=== PATIENT | male | born 1985 | race Caucasian/White ===

== ENCOUNTER 2023-03-09 00:34 | Emergency (ER) | payer OTHER, SELFPAY ==
--- NOTE | 2023-03-09 | ECG_ITS ---
Test Reason : TASED Blood Pressure : / mmHG Vent. Rate : 118 BPM Atrial Rate : 118 BPM P-R Int : 130 ms QRS Dur : 088 ms QT Int : 358 ms P-R-T Axes : 045 -14 055 degrees QTc Int : 501 ms Sinus tachycardia Nonspecific ST abnormality Abnormal ECG When compared with ECG of 25-DEC-2017 21:55, Heart rate has decreased Referred By: Amparo Garcia Electronically Signed By:MICHELA COATES
[2023-03-09 00:39] VITALS: BP 142/82; PULSE 134; RESP 22; TEMP 36.5; O2SAT 94; BMI 30.4
--- NOTE | 2023-03-09 00:52 | ED.GENADULT ---
HPI - General Adult General Chief complaint: General Medical Stated complaint: behavioral Time Seen by Provider: 03/09/23 00:39 Source: patient, RN notes reviewed and police Mode of arrival: EMS Limitations: no limitations History of Present Illness HPI narrative: Patient comes to the emergency room by EMS and with police. Patient states that he does not remember exactly what happened, states that he does remember he was running away from police, the taste, admits to using cocaine. According to the patient's nurse to talk report, the patient was combative, was physically restrain. At this time, patient has no complaints. Patient calm and cooperative. Related Data Allergies Allergy/AdvReac Type Severity Reaction Status Date / Time No Known Allergies Allergy Unverified 03/29/20 15:40 Review of Systems Review of Systems: Constitutional : No Weight loss, No Fever, No Chills, No Night Sweats, No Fatigue, No Malaise ENT/Mouth : No Hearing loss, No Ear Pain, No Nasal Congestion, No Sinus Pain, No Hoarseness, No sore throat, No Rhinorrhea, No Swallowing Difficulty Eyes: No Eye Pain, No Swelling, No Redness, No Foreign Body, No Discharge, No Vision Changes Cardiovascular : No Chest Pain, No SOB, No Dyspnea on Exertion, No Orthopnea, No Edema, No Palpitations Respiratory : No Cough, No Sputum, No Wheezing, No Smoke Exposure, No Dyspnea Gastrointestinal : No Nausea, No Vomiting, No Diarrhea, No Constipation, No abdominal Pain, No Hematochezia, No Melena Genitourinary : no irregular bleeding, No Dysuria, No Urinary Frequency, No Hematuria, No Urinary Incontinence, No Urgency, No Flank Pain, No Urinary Flow Changes, No Hesitancy Musculoskeletal : No joint pain, No Myalgias, No Joint Swelling Skin : No Skin Lesions, No rash Neuro : No Weakness, No Numbness, No Paresthesias, No Loss of Consciousness, No Dizziness, No Headache Psych : No Anxiety/Panic, No Depression, No SI/HI/AH/VH, admits using cocaine Heme/Lymph: No Bruising, No Bleeding,No Lymphadenopathy Endocrine : No Polyuria, No Polydipsia, No Temperature Intolerance PMFSH Past Medical History Medical History (Updated 03/09/23 @ 00:59 by Amparo Garcia MD) Substance abuse Social History Social History Advance Directives: No Advance Directives Information Provided: Yes Physical Exam ED Vital Signs: Vital Signs - 24 hr 03/09/23 00:39 Temperature 97.7 F Pulse Rate 134 H Respiratory Rate 22 H Blood Pressure 142/82 H Pulse Oximetry 94 Oxygen Delivery Method Room Air BMI result Body Mass Index 30.4 Const Other: Appearance: Alert. Oriented X3. No acute distress. Eyes: Pupils equal, round and reactive to light. ENT: Pharynx normal. Neck: Normal inspection. Neck supple. No lymph nodes noted. No crepitus CVS: Normal heart rate and rhythm. Pulses normal. Normal S1 and S2 Respiratory: No respiratory distress. Breath sounds normal. No Wheezing. No rales Abdomen: Soft and nontender. No rigidity. No distention. Skin: Skin warm and dry. Normal skin color. Normal skin turgor. Extremities: No lower extremity edema. No Lacerations. No Rash Neuro: Oriented X 3. No motor deficit. No sensory deficit. Moving all extremities. No slurred speech. CN 2 through 12 grossly intact Psych: calm, cooperative, normal affect Course Course Course Narrative: -when patient arrived and I spoke to him, patient was, cooperative, we took the restraints off, patient remains calm -patient cooperative, states that she has no interest in detox programs -EKG done, labs pending Medical Decision Making Medical Decision Making [facility] Narrative: -my interpretation of EKG: Normal sinus rhythm, heart rate 18, no ST segment depression elevation, no T-wave inversion, QTC 501 -patient's troponin negative -patient asymptomatic, -patient provided with information for detox Differential Diagnosis Differential Diagnoses: The differential diagnosis associated with the presentation includes (Substance abuse, alcohol abuse) Admission/Observation Consideration of admission/observation: Escalation of care including admission/observation considered (Patient was tased by PD, admission was considered) Lab Data [facility] Lab Attestation statement: I reviewed the patient's lab results. 03/09/23 01:14 03/09/23 01:14 Labs: Lab Results 03/09/23 03/09/23 03/09/23 Range/Units 01:14 01:14 01:14 WBC 8.4 (4.8-10.8) X10*3/uL RBC 5.27 (4.60-5.80) X10*6/uL Hgb 15.6 (14.0-18.0) g/dl Hct 45.4 (42.0-52.0) % MCV 86.1 (80.0-98.0) fL MCH 29.6 (27.0-33.0) pg MCHC 34.4 (31.0-36.0) g/dl RDW 12.2 (11.0-16.0) % Plt Count 237 (160-400) X10*3/uL MPV 9.2 L (9.4-12.4) fL Immature Gran % (Auto) 0.2 (0.0-0.4) % Neut % (Auto) 80.3 H (45-73) % Lymph % (Auto) 12.5 L (20-40) % [place] % (Auto) 5.7 (2-11) % Eos % (Auto) 0.6 (0-4) % Baso % (Auto) 0.7 (0-2) % Lymph # (Auto) 1.1 L (1.2-4.9) X10*3/uL [place] # (Auto) 0.5 (0.1-1.2) X10*3/uL Eos # (Auto) 0.1 (0.0-0.4) X10*3/uL Baso # (Auto) 0.1 (0.0-0.2) X10*3/uL Abs Immat Gran (auto) 0.02 (0.00-0.03) X10*3/uL Absolute Neuts (auto) 6.7 (2.0-8.3) x10*3/uL Absolute Nucleated RBC 0.000 (0.0-0.012) X10*3/uL Nucleated RBC % (auto) 0.0 (0.0-0.2) /100WBC Sodium 139 (135-145) mmol/L Potassium 3.8 (3.3-5.1) mmol/L Chloride 105 (96-108) mmol/L Carbon Dioxide 20 L (22-29) mmol/L Anion Gap 18 (12-20) BUN 21 H (9-16) mg/dL Creatinine 1.37 (0.5-1.4) mg/dL Estim Creat Clear Calc 88.4 Estimated GFR 58 Random Glucose 185 H (60-115) mg/dL Calcium 9.9 (8.4-10.2) mg/dL Troponin I High Sens 23.0 (<3.5-35.0) ng/L Independent Interpretation I performed an independent interpretation of an: EKG Independent Historian Clinical information obtained from an independent historian. History obtained from or confirmed by: EMS and Other Critical Care Time Critical Care Time Critical Care Time: Yes Total Critical Care Time: 60 Attestation: I have personally provided critical care time. Time includes review of lab data, radiology results, discussion with consultants, and monitoring for potential decompensation. Intervention performed as documented. Discharge Plan Discharge Clinical Impression: Substance abuse Patient Disposition: Home, Self-Care Instructions: Polysubstance Abuse (ED) Additional Instructions: Please follow-up with your primary care physician tomorrow. If you have any worsening or new symptoms, please return to the emergency room or call 911
--- NOTE | 2023-03-09 00:55 | PC.NURSE ---
pt calm and cooperative at this time
[2023-03-09 01:20] LABS: MANUAL DIFF FLAG NO
[2023-03-09 01:21] LABS: Basophils Absolute Auto 0.1 X10*3/uL (0.0-0.2); Basophils Percent Auto 0.7 % (0-2); Eosinophils Absolute Auto 0.1 X10*3/uL (0.0-0.4); Eosinophils Percent Auto 0.6 % (0-4); Hematocrit 45.4 % (42.0-52.0); Hemoglobin 15.6 g/dl (14.0-18.0); Imm Gran Abs Auto 0.02 X10*3/uL (0.00-0.03); Imm Gran Pct Auto 0.2 % (0.0-0.4); Lymphocytes Absolute Auto 1.1 X10*3/uL (1.2-4.9); Lymphocytes Percent Auto 12.5 % (20-40); Mean Corpuscular HGB Conc 34.4 g/dl (31.0-36.0); Mean Corpuscular Hemoglobin 29.6 pg (27.0-33.0); Mean Corpuscular Volume 86.1 fL (80.0-98.0); Mean Platelet Volume 9.2 fL (9.4-12.4); Monocytes Absolute Auto 0.5 X10*3/uL (0.1-1.2); Monocytes Percent Auto 5.7 % (2-11); Neutrophils Absolute Auto 6.7 x10*3/uL (2.0-8.3); Neutrophils Percent Auto 80.3 % (45-73); Platelet Count 237 X10*3/uL (160-400); Red Blood Count 5.27 X10*6/uL (4.60-5.80); Red Cell Distribution Width 12.2 % (11.0-16.0); White Blood Count 8.4 X10*3/uL (4.8-10.8)
--- NOTE | 2023-03-09 01:26 | PC.NURSE ---
pt reported he wants to go to detox
[2023-03-09 01:33] LABS: Anion Gap 18 (12-20); Blood Urea Nitrogen 21 mg/dL (9-16); Calcium 9.9 mg/dL (8.4-10.2); Carbon Dioxide 20 mmol/L (22-29); Chloride 105 mmol/L (96-108); Creatinine Clr Calc Pharmacy 88.4; Estimated Glomerular Filt Rate 58; Glucose Random 185 mg/dL (60-115); Potassium 3.8 mmol/L (3.3-5.1); Sodium 139 mmol/L (135-145)
--- NOTE | 2023-03-09 02:20 | PC.NURSE ---
pt denies any complaints, ambulatory gait steady
== END 2023-03-09 02:21 | disposition home or self-care (01) ==
PROVIDERS: Emergency Provider Emergency Medicine; PCP Internal Medicine
DX: F14.10 Cocaine abuse, uncomplicated (principal); R00.0 Tachycardia, unspecified; Z79.899 Other long term (current) drug therapy
CPT/HCPCS: 36415; 80048; 84484; 85025; 93005; 99283

== ENCOUNTER 2024-08-16 15:31 | Emergency (ER) | payer OTHER, SELFPAY ==
--- NOTE | ~2024-08-16 | XR_ITS ---
CLINICAL HISTORY: Blunt injury,pain 3 view right hand Comparison: None Findings: Old remodeled and healed 5th metacarpal fracture with deformity and dorsal bowing. No displaced acute fracture. No dislocation. Soft tissue swelling is nonspecific, including hypothenar region. No radiopaque foreign body. IMPRESSION: 1. No acute fracture or dislocation. 2. Old healed 5th metacarpal fracture. This document has been electronically signed by: Samir Parham MD on 08/16/2024 19:06:02
[2024-08-16 15:39] VITALS: BP 180/102; PULSE 154
[2024-08-16 15:50] VITALS: BP 155/93; PULSE 120; RESP 20; TEMP 37.2; O2SAT 97; BMI 25.1
--- NOTE | 2024-08-16 16:16 | PC.NURSE ---
Belongings brought to [facility] closet by security.
--- NOTE | 2024-08-16 16:54 | PC.NURSE ---
Patient refusing bloodwork.
--- NOTE | 2024-08-16 17:14 | ED_ITS ---
HPI - Psych General Chief Complaint: ETOH/Substance Use Stated Complaint: UNDER THE INF OF DRUGS,AGGESSIVE EPISODE PER EMS Time Seen by Provider: 08/16/24 16:52 Source: patient Mode of arrival: ambulatory Limitations: no limitations History of Present Illness ED Provider: HPI Narrative: Patient's history of substance abuse cocaine and heroin not IVDA was the detox last year was sober for 12 months started using drugs again in 05/05 wants to go to detox again denies any alcohol use no depression no suicidal ideation Related Data Allergies Allergy/AdvReac Type Severity Reaction Status Date / Time No Known Allergies Allergy Unverified 08/16/24 15:51 Review of Systems 2 Review of Systems: Yes all other systems are reviewed and are negative [facility] Past Medical History Medical History Substance abuse Social History Social History Unable to assess alcohol history related to: Refusing to respond Smoked in Last 30 Days: Yes Substance Use Type: Crack/Cocaine and Heroin Advance Directives: No Advance Directives Information Provided: No Do you have a plan to hurt others: No Plan Physical Exam 2 Vital Signs: Vital Signs: Last Vital Signs Temp 97.9 F 08/16/24 22:48 Pulse 61 08/17/24 01:38 Resp 18 08/17/24 01:38 BP 113/64 08/17/24 01:38 Pulse Ox 97 08/17/24 01:38 O2 Del Method Room Air 08/17/24 01:38 BMI result Body Mass Index 25.1 Appearance: Alert. Oriented X3. No acute distress. Eyes: No pallor or icterus ENT: Pharynx normal. Oral Mucosa moist Neck: Normal inspection. Neck supple. CVS: Normal heart rate and rhythm. Pulses normal. Respiratory: No respiratory distress. Equal air entry bilateral, no wheezing/rales/rhonchi Abdomen: Soft and nontender. Bowel sounds are present, no mass palpable, no CVA tenderness Skin: Skin warm and dry. Normal skin color. Normal skin turgor. Extremities: No lower extremity edema. No calf tenderness Neuro: Oriented X 3. No motor deficit. No sensory deficit.No cerebellar signs , cranial nerves II-XII intact Medications Administered Discontinued Medications Generic Name Dose Route Start Last Admin Trade Name Floresita PRN Reason Stop Dose Admin Lorazepam 2 mg 08/16/24 20:06 08/16/24 20:13 Lorazepam 1 Mg Tablet PO 08/16/24 20:07 2 mg ONCE ONE Administration Medical Decision Making Medical Decision Making [facility] Narrative: Patient's polysubstance abuse denies any alcohol use number like to go to detox will get care team to evaluate the patient patient is refusing any labs at this time Patient is seen by care team plan for detox in a.m. Lab Data [facility] Lab Attestation statement: I reviewed the patient's lab results. 08/16/24 18:04 08/16/24 17:19 Labs: Lab Results 08/16/24 08/16/24 08/16/24 Range/Units 17:19 18:04 21:10 WBC 15.2 H (4.8-10.8) X10*3/uL RBC 5.35 (4.60-5.80) X10*6/uL Hgb 16.7 (14.0-18.0) g/dl Hct 47.0 (42.0-52.0) % MCV 87.9 (80.0-98.0) fL MCH 31.2 (27.0-33.0) pg MCHC 35.5 (31.0-36.0) g/dl RDW 12.0 (11.0-16.0) % Plt Count 206 (160-400) X10*3/uL MPV 9.4 (9.4-12.4) fL Immature Gran % (Auto) 0.5 H (0.0-0.4) % Neut % (Auto) 79.2 H (45-73) % Lymph % (Auto) 11.8 L (20-40) % [place] % (Auto) 7.7 (2-11) % Eos % (Auto) 0.3 (0-4) % Baso % (Auto) 0.5 (0-2) % Lymph # (Auto) 1.8 (1.2-4.9) X10*3/uL [place] # (Auto) 1.2 (0.1-1.2) X10*3/uL Eos # (Auto) 0.1 (0.0-0.4) X10*3/uL Baso # (Auto) 0.1 (0.0-0.2) X10*3/uL Abs Immat Gran (auto) 0.07 H (0.00-0.03) X10*3/uL Absolute Neuts (auto) 12.1 H (2.0-8.3) x10*3/uL Absolute Nucleated RBC 0.000 (0.0-0.012) X10*3/uL Nucleated RBC % (auto) 0.0 (0.0-0.2) /100WBC Sodium 141 (135-145) mmol/L Potassium 3.7 (3.3-5.1) mmol/L Chloride 104 (96-108) mmol/L Carbon Dioxide 23 (22-29) mmol/L Anion Gap 18 (12-20) BUN 15 (9-16) mg/dL Creatinine 0.85 (0.5-1.4) mg/dL Estim Creat Clear Calc 125.5 Estimated GFR > 60 Random Glucose 72 (60-115) mg/dL Calcium 9.1 D (8.4-10.2) mg/dL Magnesium 2.1 (1.6-2.6) mg/dL Total Bilirubin 1.3 H (0.0-1.0) mg/dL Direct Bilirubin 0.3 (0.0-0.5) mg/dL AST 23 (5-37) U/L ALT 16 (0-40) U/L Alkaline Phosphatase 58 (39-117) U/L Total Protein 7.2 (6.5-8.0) g/dL Albumin 4.4 (3.5-5.0) g/dL Urine Color Dark Yellow Urine Appearance Clear Urine pH 6.5 (5.0-9.0) Ur Specific [place] >= 1.030 H (1.005-1.025) Urine Protein 30 (1+) H (Neg-Trace) mg/dL Urine Glucose (UA) Negative (Negative) mg/dL Urine Ketones 15 (Negative) mg/dL Urine Blood Negative (Negative) Urine Nitrite Negative (Negative) Ur Leukocyte Esterase Trace H (Negative) Urine RBC 0-2 (0-2) /HPF Urine WBC 11-20 H (0-5) /HPF Ur Squamous Epith Cells 3-5 (0-2) /HPF Urine Bacteria None Seen (None Seen) Hyaline Casts 3-5 (0-2) /LPF Salicylates < 5.0 L (15-30) mg/dL Urine Opiates Screen Not Detected (Not Detect) Ur Buprenorphine Scrn Not Detected (Not Detect) ng/mL Ur Oxycodone Screen Not Detected (Not Detect) ng/mL Urine Methadone Screen Not Detected (Not Detect) ng/mL Urine Fentanyl Screen Not Detected (Not Detect) Ur Barbiturates Screen Not Detected (Not Detect) Ur Phencyclidine Scrn Not Detected (Not Detect) Ur Amphetamines Screen Not Detected (Not Detect) U Benzodiazepines Scrn Not Detected (Not Detect) Urine Cocaine Screen POSITIVE H (Not Detect) U Marijuana (THC) Screen POSITIVE H (Not Detect) Ethyl Alcohol < 10 mg/dL Influenza Type A (PCR) NEGATIVE (Negative) Influenza Type B (PCR) NEGATIVE (Negative) RSV RNA Qual (PCR) NEGATIVE (Negative) SARS-CoV-2 RNA (RT-PCR) NEGATIVE (Negative) Discharge Plan Discharge Clinical Impression: Polysubstance abuse Patient Disposition: Still a Patient Print Language: [place]
[2024-08-16 18:08] LABS: MANUAL DIFF FLAG NO
[2024-08-16 18:10] LABS: Basophils Percent Auto 0.5 % (0-2); Eosinophils Percent Auto 0.3 % (0-4); Hemoglobin 16.7 g/dl (14.0-18.0); Imm Gran Pct Auto 0.5 % (0.0-0.4); Lymphocytes Percent Auto 11.8 % (20-40); Mean Corpuscular HGB Conc 35.5 g/dl (31.0-36.0); Mean Corpuscular Hemoglobin 31.2 pg (27.0-33.0); Mean Corpuscular Volume 87.9 fL (80.0-98.0); Mean Platelet Volume 9.4 fL (9.4-12.4); Monocytes Percent Auto 7.7 % (2-11); Neutrophils Percent Auto 79.2 % (45-73); Platelet Count 206 X10*3/uL (160-400); Red Blood Count 5.35 X10*6/uL (4.60-5.80); White Blood Count 15.2 X10*3/uL (4.8-10.8)
[2024-08-16 18:11] LABS: Basophils Absolute Auto 0.1 X10*3/uL (0.0-0.2); Eosinophils Absolute Auto 0.1 X10*3/uL (0.0-0.4); Imm Gran Abs Auto 0.07 X10*3/uL (0.00-0.03); Lymphocytes Absolute Auto 1.8 X10*3/uL (1.2-4.9); Monocytes Absolute Auto 1.2 X10*3/uL (0.1-1.2); Neutrophils Absolute Auto 12.1 x10*3/uL (2.0-8.3)
[2024-08-16 18:34] LABS: Salicylate < 5.0 mg/dL (15-30)
[2024-08-16 18:47] LABS: Influenza A PCR NEGATIVE (Negative); Influenza B PCR NEGATIVE (Negative); Resp Syncy Virus RNA Qual PCR NEGATIVE (Negative); SARS COV2 PCR INHOUSE NEGATIVE (Negative)
--- NOTE | 2024-08-16 19:28 | PC.NURSE ---
Patient's labs not resulted since 1718, called lab, will run sample now.
[2024-08-16 19:47] LABS: Alanine Aminotransferase 16 U/L (0-40); Albumin Level 4.4 g/dL (3.5-5.0); Alkaline Phosphatase 58 U/L (39-117); Anion Gap 18 (12-20); Aspartate Amino Transferase 23 U/L (5-37); Bilirubin Direct 0.3 mg/dL (0.0-0.5); Bilirubin Total 1.3 mg/dL (0.0-1.0); Blood Urea Nitrogen 15 mg/dL (9-16); Calcium 9.1 mg/dL (8.4-10.2); Carbon Dioxide 23 mmol/L (22-29); Chloride 104 mmol/L (96-108); Creatinine Clr Calc Pharmacy 125.5; Estimated Glomerular Filt Rate > 60; Ethanol < 10 mg/dL; Glucose Random 72 mg/dL (60-115); Magnesium 2.1 mg/dL (1.6-2.6); Potassium 3.7 mmol/L (3.3-5.1); Sodium 141 mmol/L (135-145); Total Protein 7.2 g/dL (6.5-8.0)
[2024-08-16 19:55] VITALS: BP 115/62; PULSE 76; RESP 16; TEMP 37.6; O2SAT 94
[2024-08-16] MEDS: LORazepam 1 MG TABLET 2 MG PO (20:13)
[2024-08-16 21:19] LABS: Appearance Urine Clear; Color Urine Dark Yellow; Glucose Urine UA Negative (Negative); Leukocyte Esterase Urine Trace (Negative); Nitrite Urine Negative (Negative); PH 6.5 (5.0-9.0); Specific Gravity - Urine >= 1.030 (1.005-1.025); UMIC TRIGGER UACC YES; Urine Blood Negative (Negative); Urine Ketones 15 mg/dL (Negative); Urine Protein 30 (1+) mg/dL (Neg-Trace)
[2024-08-16 21:24] LABS: Bacteria Urine None Seen (None Seen); RBC Urine 0-2 /HPF (0-2); UACC Culture Trigger YES
[2024-08-16 21:29] LABS: Amphetamine Screen Urine Not Detected (Not Detect); Barbiturates, Urine Not Detected (Not Detect); Benzodiazepines Screen Urine Not Detected (Not Detect); Buprenorphine Scr Not Detected (Not Detect); Cannabinoid Screen Urine POSITIVE (Not Detect); Cocaine Screen Urine POSITIVE (Not Detect); Fentanyl, urine Not Detected (Not Detect); Methadone Screen, Urine Not Detected (Not Detect); Opiate Screen Urine Not Detected (Not Detect); Oxycodone Screen Urine Not Detected (Not Detect); Phencyclidine Screen Urine Not Detected (Not Detect)
[2024-08-16 22:48] VITALS: BP 129/73; PULSE 66; RESP 18; TEMP 36.6; O2SAT 99
[2024-08-17 01:38] VITALS: BP 113/64; PULSE 61; RESP 18; O2SAT 97
[2024-08-17 04:34] VITALS: BP 126/77; PULSE 75; RESP 16; TEMP 36.4; O2SAT 94
[2024-08-17 06:32] VITALS: BP 109/54; PULSE 63; RESP 17; TEMP 36.7; O2SAT 98
--- NOTE | 2024-08-17 09:55 | MHC.RECOVRN ---
Pt accepted to [facility] pending phone screen. RN aware.
--- NOTE | 2024-08-17 10:48 | MHC.RECOVRN ---
Pt accepted to [facility] for 1PM admission. Will be transported via [employer]. RN aware.
[2024-08-17 12:09] VITALS: BP 122/76; PULSE 107; RESP 15; TEMP 36.6; O2SAT 98
== END 2024-08-17 12:11 | disposition home or self-care (01) ==
PROVIDERS: Emergency Provider Internal Medicine
DX: F14.10 Cocaine abuse, uncomplicated (principal); F12.10 Cannabis abuse, uncomplicated; M79.641 Pain in right hand; R45.6 Violent behavior; Z79.899 Other long term (current) drug therapy; Z51.81 Encounter for therapeutic drug level monitoring; Z03.818 Encounter for observation for suspected exposure to other biological agents ruled out
CPT/HCPCS: 0241U; 36415; 73130; 80048; 80076; 80179; 80307; 81001; 83735; 85025; 87086; 99284; 99285; S9485

== ENCOUNTER → 2024-08-16 18:16 | Outpatient (BNV) | payer OTHER, SELFPAY | PROVIDERS: Emergency Provider Internal Medicine; Visit Provider Radiology Neuroradiology | DX: M79.641 Pain in right hand (principal) | CPT/HCPCS: 73130 ==